=== PATIENT | male | born 1995 | race Caucasian/White ===

== ENCOUNTER → 2020-10-28 | Day surgery (SDC) | payer BC ==
[2020-10-26 11:40] VITALS: BMI 25.8
[~2020-10-28] MED LIST: LACTATED RINGERS 1,000 ML IV SCH; LIDOCAINE 1% (10MG/ML) FOR IV START INTRADERMA ONE; LIDOCAINE 1% INJ 10MG/ML (20 ML MDV) ONE; PROPOFOL 10 MG/ML 20 ML VIAL IV ONE
[2020-10-28 10:07] VITALS: TEMP 97.9
--- NOTE | 2020-10-28 11:35 | P.PCN ---
Date of Procedure: 10/28/20 Procedure(s) Performed: BRIEF HISTORY: Patient is a 24-year-old, pleasant, male scheduled for an upper endoscopy as a part of evaluation of severe history of GERD the last 2 years duration. Presently on Prilosec 10 mg daily and Pepcid as with some relief in his symptoms.. PROCEDURE PERFORMED: Esophagogastroduodenoscopy.With biopsy PREOPERATIVE DIAGNOSIS: Long-standing history of GERD. IV sedation per anesthesia. PROCEDURE: After informed consent was obtained, the patient was brought into the endoscopy unit. IV sedation was administered by Anesthesia under continuous monitoring. Initially the Olympus GIF-140 video endoscope was inserted into the mouth. Esophagus intubated without any difficulty. It was gradually advanced into the stomach and duodenum and carefully examined. The bulb and the second part of the duodenum appeared normal. The scope at this time was withdrawn to the stomach, adequately insufflated with air, and upon careful examination, mucosa of the antrum had mild gastritis and biopsies were done from this area. The, body, cardia and the fundus appeared normal. The scope was then withdrawn into the esophagus. Small sliding-type well hernia noted. The GE junction was located at 41cm from the incisors. There was circumferential erythema with linear erosions in the distal esophagus consistent with LA grade B reflux esophagitis. Also there were thickened esophageal folds with longitudinal ridges and furrows and intermittent distal esophagus suspicious for years of age esophagitis and biopsies were done from this area. The proximal esophagus appeared normal and the patient tolerated the procedure well. IMPRESSION: 1. Mild antral gastritis. 2. Small hiatal hernia 3. Linear erosions and circumferential erythema of the distal esophagus and into matters, thickened esophageal folds with longitudinal ridges and furrows suspicious for eosinophilic esophagitis and multiple biopsies were done. RECOMMENDATIONS: The findings of this examination were discussed with the patient as well as his family. He was advised to follow with the biopsy results. He was advised to continue with omeprazole 20 mg daily half hour before dinnertime and Pepcid at bedtime and follow antireflux measures. He'll be seen in office in 2 weeks to discuss the biopsy results..
[2020-10-28 11:37] VITALS: RESP 17
[2020-10-28 11:45] VITALS: BP 108/74; PULSE 62
== END ==
LOC: ORWHC2ENDO 09:32
PROVIDERS: ATTEND Internal Medicine Gastroenterology
DX: K29.50 Unspecified chronic gastritis without bleeding (principal); K20.0 Eosinophilic esophagitis; K21.9 Gastro-esophageal reflux disease without esophagitis; K44.9 Diaphragmatic hernia without obstruction or gangrene; Z79.899 Other long term (current) drug therapy
CPT/HCPCS: 88305; 43239; J2001; J2704

== ENCOUNTER → 2021-08-30 | Outpatient (CLI) | payer BC | END | disposition home or self-care (01) | LOC: LABMAIN 18:06 | PROVIDERS: ATTEND Specialist/Technologist Athletic Trainer | DX: Z20.828 Contact with and (suspected) exposure to other viral communicable diseases (principal) | CPT/HCPCS: 87635 ==